=== PATIENT | female | born 1945 | race Hispanic/Latino ===

== ENCOUNTER 2023-06-11 10:29 | Day surgery (SDC) | payer OTHER ==
[2023-06-09 16:47] VITALS: BMI 17.6
[2023-06-11] MEDS ORDERED: Clindamycin/D5W 900 mg/50 ml Premix Bag ONE ×2 (11:12→12:20)
[2023-06-11] MEDS ORDERED: Levofloxacin 500 mg/D5W 100 ml Premix Bag ONE (11:12)
[2023-06-11] MEDS ORDERED: fentaNYL 50 mcg/mL 1 mL Vial ONE ×2 (11:33→12:05)
[2023-06-11] MEDS ORDERED: Ropivacaine 0.5% HCl/PF (150 MG/30 ML VIAL) ONE (11:33)
[2023-06-11] MEDS ORDERED: PROPOFOL 200 MG/20 ML VIAL ONE (12:41)
[2023-06-11] MEDS ORDERED: Ondansetron PF 4 MG/2 ML Vial ONE (12:41)
[2023-06-11] MEDS ORDERED: Lidocaine 1% PF 5 ML VIAL ONE (12:41)
[2023-06-11] MEDS ORDERED: Dexamethasone 20 MG/5 ML VIAL ONE (12:41)
== END 2023-06-11 15:08 | disposition home or self-care (01) ==
LOC: SDC 10:29
PROVIDERS: ATTEND Orthopaedic Surgery
PROC: 0PSH04Z Reposition Right Radius with Internal Fixation Device, Open Approach (ICD-10-PCS; principal; 2023-06-11)
DX: S52.531A Colles' fracture of right radius, initial encounter for closed fracture (principal); I10 Essential (primary) hypertension; H46.9 Unspecified optic neuritis; Z90.710 Acquired absence of both cervix and uterus; Z79.899 Other long term (current) drug therapy; Z88.0 Allergy status to penicillin; Z88.1 Allergy status to other antibiotic agents; X58.XXXA Exposure to other specified factors, initial encounter
CPT/HCPCS: 25608; 73100; C1713 ×3; J3010; J1100; J1956; J2405; J2704; J2795; J3490